=== PATIENT | female | born 1935 | race Caucasian/White ===

== ENCOUNTER 2018-11-09 12:58 | Emergency (ER) | payer MEDICARE, BC ==
[~2018-11-09] VITALS: Ht 172.7 cm; Wt 77.3 kg
[2018-11-09 13:07] VITALS: Ht 172.7 cm; Wt 77.3 kg
[2018-11-09] MEDS ORDERED: KEFLEX500 MG PO (19:16)
[2018-11-09] MEDS ORDERED: VOLTAREN75 MG PO (19:16)
[2018-11-09 19:55] VITALS: BP 161/89
== END 2018-11-09 19:55 | disposition home or self-care (01) ==
LOC: D.ER 12:58
DX: S81.012A Laceration without foreign body, left knee, initial encounter (principal); W18.30XA Fall on same level, unspecified, initial encounter; Y93.89 Activity, other specified; Y92.019 Unspecified place in single-family (private) house as the place of occurrence of the external cause; I10 Essential (primary) hypertension